=== PATIENT | female | born 1985 | race Caucasian/White ===

== ENCOUNTER 2017-06-25 11:40 | Emergency (ER) | payer OTHER, BC ==
[~2017-06-25] VITALS: Ht 154.9 cm; Wt 63.5 kg
[2017-06-25] MEDS ORDERED: ACETAMINOPHEN 325 MG TAB PO ONE (12:30)
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
== END 2017-06-25 15:20 | disposition home or self-care (01) ==
LOC: ER 11:40
DX: S50.11XA Contusion of right forearm, initial encounter (principal); V43.52XA Car driver injured in collision with other type car in traffic accident, initial encounter; Y92.488 Other paved roadways as the place of occurrence of the external cause
CPT/HCPCS: 71020; 99283